=== PATIENT | female | born 1945 | race Caucasian/White ===

== ENCOUNTER 2016-11-06 09:05 | Inpatient (IN) | payer OTHER, MEDICARE ==
[~2016-11-06] VITALS: Ht 152.4 cm; Wt 74.7 kg
[~2016-11-06 09:05] MED LIST: ASPIRIN EC325 MG PO; Aspirin E.C. PO; CENTRUM SILVER1 EAC3 PO; Centrum Silver,Certa PO; Colace PO; Fish Oil PO; HYDROCODON-ACE1 EAC7 PO; IRON325 M1 PO; LISINOPRIL20 MG PO; Macrobid; Milk Of Magnesia,MOM PO; PriLOSEC OTC PO; TOPIRAMATE50 MG PO; TRAMADOL HCL50 MG PO; Ultram PO; Zestril,Prinivil PO
[2016-11-06 09:33] VITALS: BP 124/60
[2016-11-06 16:52] VITALS: BP 132/64
[2016-11-06 20:23] VITALS: BP 133/68
[2016-11-06 23:59] VITALS: BP 108/53
[2016-11-07 03:04] VITALS: BP 115/57
[2016-11-07 05:38] LABS: MCV 91.4 FL (83-99)
[2016-11-07 08:05] VITALS: BP 99/54
[2016-11-07] MEDS ORDERED: ASPIRIN EC325 MG PO (08:19)
[2016-11-07] MEDS ORDERED: SENNA PLUS TAB1 EACH PO (08:20)
[2016-11-07] MEDS ORDERED: ENDOCET 5-3251 EACH PO (08:20)
== END 2016-11-07 12:06 | disposition home or self-care (01) | DRG 483 ==
LOC: 2SOUTH 09:05 → EDSTATUS 11:31 → SDC 11:31 → 2SOUTH 11:33 → 3EAST 16:30
PROVIDERS: Orthopaedic Surgery
PROC: 0RRJ0JZ Replacement of Right Shoulder Joint with Synthetic Substitute, Open Approach (ICD-10-PCS; principal; 2016-11-06)
DX: M19.011 Primary osteoarthritis, right shoulder (principal); E66.9 Obesity, unspecified; I10 Essential (primary) hypertension; E78.5 Hyperlipidemia, unspecified; R73.09 Other abnormal glucose; Z68.32 Body mass index [BMI] 32.0-32.9, adult; G56.03 Carpal tunnel syndrome, bilateral upper limbs; M48.00 Spinal stenosis, site unspecified; R01.1 Cardiac murmur, unspecified
CPT/HCPCS: 85014; 85018; J0330; J0690; J1885; J2250; J2405; J2795; J3010; J7050; J7120